=== PATIENT | male | born 1995 | race Caucasian/White ===

== ENCOUNTER 2020-09-22 22:46 | Emergency (ER) | payer BC, SELFPAY ==
[2020-09-22] VITALS (8 sets, daily range): BP systolic 133–165; BP diastolic 77–93; PULSE 87–98; RESP 17–30; TEMP 35.8; O2SAT 96–100
--- NOTE | ~2020-09-22 | XR_ITS ---
EXAMINATION: XR chest 2V DATE: 09/23/2020 00:09 INDICATION: Dyspnea. TECHNIQUE: Frontal and lateral views of the chest were obtained. COMPARISON: Chest 2 views 06/15/2018 FINDINGS: The chest demonstrates clear lungs without pneumonia, pleural effusion, or pneumothorax. Th e heart size is normal. IMPRESSION: 1. No acute cardiopulmonary disease. Reviewed, dictated and finalized at location A.
[2020-09-23] VITALS (13 sets, daily range): BP systolic 134–144; BP diastolic 68–84; PULSE 74–97; RESP 18–29; O2SAT 97–100
[2020-09-23 00:04] LABS: Basophils Percent Auto 0.3 % (0.2-1.2); Eosinophils Absolute Auto 0.1 K/mm3 (0-0.3); Eosinophils Percent Auto 0.9 % (0-4.4); Hematocrit 41.3 % (42.0-52.0); Hemoglobin 13.8 g/dL (14.0-18.0); Immature Granulocyte Absolute 0.03 K/mm3 (0.00-0.031); Immature Granulocyte Percent A 0.5 % (0-0.5); Lymphocytes Absolute Auto 0.84 K/mm3 (0.9-3.2); Lymphocytes Percent Auto 12.6 % (18.3-44.2); Mean Corpuscular HGB Conc 33.4 g/dl (32-36); Mean Corpuscular Hemoglobin 27.1 pg (26-34); Mean Platelet Volume 9.2 fl (7.4-10.4); Monocytes Absolute Auto 0.2 K/mm3 (0.1-0.6); Monocytes Percent Auto 2.4 % (2.6-8.5); Neutrophils Absolute Auto 5.5 K/mm3 (1.3-6.7); Neutrophils Percent Auto 83.3 % (45.5-73.1); Platelet Count Result 214 k/mm3 (150-375); Red Cell Distribution Width 12.9 % (11.5-14.5); White Blood Count 6.7 K/mm3 (4.5-10.0)
[2020-09-23] MEDS: IBUPROFEN 400 MG TABLET 800 MG PO (00:13)
[2020-09-23 00:17] LABS: Anion Gap 6 mmol/L (8-16); Blood Urea Nitrogen 12 mg/dL (9-20); Calcium 9.5 mg/dL (8.4-10.2); Carbon Dioxide 26 mmol/L (22-30); Chloride 108 mmol/L (98-107); Estimated CRCL calculation 134 ml/min; Estimated Glomerular Filt Rate > 60; Glucose 109 mg/dL (75-110); Potassium 3.8 mmol/L (3.4-5.0); Sodium 140 mmol/L (137-145)
--- NOTE | 2020-09-23 00:38 | ED.GENADULT ---
HPI - General Adult General Chief complaint: Unspecified Stated complaint: cant stop shaking Time Seen by Provider: 09/22/20 23:16 History of Present Illness HPI narrative: Patient is a 25-year-old male who presents ER with reports of shaking. Reports he is watching TV when he started to feel like he was little short of breath. He got up and walk around and went to his room. On his room he started having an episode of shaking where his arms and legs were shaking he could not stop them. He maintained consciousness throughout this and was able to ambulate. It occurred 3 separate times for about 30 seconds each time. Patient denies any fevers or chills or sweats. No sinus congestion or sore throat or productive cough. He denies urinary or abdominal symptoms as well. No known sick contacts. Reports he has developed a slight left-sided frontal throbbing headache since this. Had no loss of bowel or bladder. He did not bite his tongue. Family concerned he may have had a seizure so they recommended he come to the ER. Related Data Home Medications Medication Instructions Recorded Confirmed No Home Medications 06/06/19 09/22/20 Allergies Allergy/AdvReac Type Severity Reaction Status Date / Time red dye Allergy Unknown Anaphylactic Verified 09/22/20 22:47 Shock Penicillins Allergy Unknown Verified 09/22/20 22:47 Review of Systems Review of Systems: All systems reviewed & are unremarkable except as noted in HPI and below Constitutional: Constitutional: Denies body ache(s), Denies chills and Denies excessive sweating Comments: Shaking ENT: Denies nasal congestion and Denies sore throat Respiratory: Respiratory: Denies cough, Reports dyspnea and Denies wheezing Gastrointestinal: Gastrointestinal: Denies abdominal pain, Denies diarrhea, Denies nausea and Denies vomiting Neurologic: Denies dizziness, Denies syncope, Reports headache(s), Denies focal weakness, Denies loss of vision, Denies memory loss, Denies numbness and Reports seizure-like activity [facility] Past Medical History Medical History (Updated 09/23/20 @ 00:53 by Jerome Garcia MD) Family history of cystic fibrosis Surgical History Surgical History (Updated 09/23/20 @ 00:41 by Jerome Garcia MD) No pertinent past surgical history Family History Family History (Updated 06/24/18 @ 14:07 by DOCTOR UNKNOWN) Grandparent Family history of thyroid disease Diabetes mellitus Family history of malignant neoplasm of thyroid Father Family history of anemia Social History Social History (Updated 09/23/20 @ 00:41 by Jerome Garcia MD) Smoking status: Never smoker Alcohol intake: current Substance use: never Gender identity (if verbalized by the patient): Male Exam Narrative: Exam Narrative: GENERAL: Well-appearing, well-nourished, and in no acute distress. HEAD: Normocephalic, atraumatic. NECK: Supple. Range of motion is painless. CHEST: Clear to auscultation. No respiratory distress. HEART: Regular rate and rhythm. Normal peripheral pulses. EXTREMITIES: Normal range of motion. No edema. SKIN: Warm, dry, no rash. NEURO: Alert and oriented x3. Clear speech. PSYCH: Normal mood and affect. Course Course Emergency Course: Unremarkable evaluation. Ibuprofen given for headache which improved his symptoms. This is felt unlikely to be a seizure. May be prodrome to viral illness. Discussed signs and symptoms for return. Vital Signs Vital signs: Vital Signs Temperature 96.5 F L 09/22/20 22:48 Pulse Rate 94 09/22/20 22:48 Respiratory Rate 17 09/22/20 22:48 Blood Pressure 165/93 H 09/22/20 22:48 Pulse Oximetry 99 09/22/20 22:48 Temperature 96.5 F L 09/22/20 22:48 Pulse Rate 95 09/23/20 00:28 Respiratory Rate 17 09/22/20 22:48 Blood Pressure 135/84 09/23/20 00:28 Pulse Oximetry 99 09/22/20 22:48 Medical Decision Making Vital Signs Vital Signs: Vital Signs Temperature 96.5 F
== END 2020-09-23 00:59 | disposition home or self-care (01) ==
PROVIDERS: Emergency Provider Emergency Medicine; PCP Family Medicine
DX: R25.9 Unspecified abnormal involuntary movements (principal)
CPT/HCPCS: 36415; 71046; 80048; 85025; 99283; A9270

== ENCOUNTER → 2020-11-05 12:17 | Outpatient (CLI) | payer BC, SELFPAY ==
--- NOTE | ~2020-11-05 | CT_ITS ---
EXAMINATION: CT abdomen pelvis w con DATE: 11/05/2020 12:38 INDICATION: Left lower quadrant abdominal pain. TECHNIQUE: Computed tomography (CT) of the abdomen and pelvis was performed with 100 mL Omnipaque 350 intravenous contrast. Automated exposure control and iterative reconstruction technique were employe d. The dose-length product was 956.99 mGy-cm. COMPARISON: None. FINDINGS: The visualized portions of the lung bases demonstrate minimal atelectasis on the right. No pleural effusion. The heart size is normal. No pericardial effusion. The liver, gallbladder, spleen, pancreas, adrenal glands, and kidneys are normal. There are no dilated loops of bowel. The appendix i s normal. There are no pathologically enlarged lymph nodes. There is no free intraperitoneal fluid. T here is an umbilical hernia containing fat. There is mild lumbar spondylosis. IMPRESSION: 1. Umbilical hernia containing fat. Reviewed, dictated and finalized at location A.
== END ==
PROVIDERS: PCP Nurse Practitioner; Visit Provider Nurse Practitioner
DX: K42.9 Umbilical hernia without obstruction or gangrene (principal)
CPT/HCPCS: 74177; Q9967

== ENCOUNTER 2021-01-31 00:05 | Emergency (ER) | payer BC, SELFPAY ==
--- NOTE | ~2021-01-31 | CT_ITS ---
EXAMINATION: CT abdomen pelvis w con DATE: 01/31/2021 02:43 INDICATION: Right lower quadrant abdominal pain for 3 days. Nausea. TECHNIQUE: Computed tomography (CT) of the abdomen and pelvis was performed with 100 cc Omnipaque 350 intravenous contrast. Automated exposure control and iterative reconstruction technique were employe d. Exam dose: 890.60 mGy-cm total exam DLP. COMPARISON: 11/05/2020 CT abdomen pelvis FINDINGS: The lung bases are clear. Normal heart size. No pericardial or pleural effusion. The liver, gallbladder, bile ducts, spleen, pancreas, pancreatic, and adrenal glands and kidneys are unremarkable. Normal caliber of the abdominal aorta. No intraperitoneal or retroperitoneal or pelvic mass lesion or adenopathy or ascites. Normal appendix. No bowel obstruction, bowel wall thickening, pneumatosis or intraperitoneal free air is detected. Small fat-containing umbilical hernia. Included skeletal structures are unremarkable. IMPRESSION: Normal appendix Reviewed, dictated and finalized at Location A. Reviewed, dictated and finalized at location A. IMPRESSION: Normal appendix
[2021-01-31 00:09] VITALS: BP 152/75; PULSE 78; RESP 18; TEMP 36.6; O2SAT 99
[2021-01-31 00:20] LABS: Basophils Percent Auto 0.4 % (0.2-1.2); Eosinophils Absolute Auto 0.1 K/mm3 (0-0.3); Hematocrit 43.1 % (42.0-52.0); Hemoglobin 14.7 g/dL (14.0-18.0); Immature Granulocyte Absolute 0.02 K/mm3 (0.00-0.031); Immature Granulocyte Percent A 0.2 % (0-0.5); Lymphocytes Percent Auto 27.3 % (18.3-44.2); Mean Corpuscular HGB Conc 34.1 g/dl (32-36); Mean Corpuscular Hemoglobin 27.4 pg (26-34); Mean Corpuscular Volume 80.3 fl (80-100); Mean Platelet Volume 9.2 fl (7.4-10.4); Monocytes Absolute Auto 0.5 K/mm3 (0.1-0.6); Monocytes Percent Auto 5.9 % (2.6-8.5); Neutrophils Absolute Auto 5.5 K/mm3 (1.3-6.7); Neutrophils Percent Auto 65.2 % (45.5-73.1); Platelet Count Result 273 k/mm3 (150-375); Red Blood Count 5.37 M/mm3 (4.6-6.20); Red Cell Distribution Width 12.9 % (11.5-14.5); White Blood Count 8.4 K/mm3 (4.5-10.0)
[2021-01-31 00:29] LABS: Alanine Aminotransferase 40 U/L (4-50); Alkaline Phosphatase 81 U/L (38-126); Anion Gap 12 mmol/L (8-16); Aspartate Amino Transferase 29 U/L (17-59); Bilirubin,Total 0.6 mg/dL (0.2-1.3); Blood Urea Nitrogen 14 mg/dL (9-20); Calcium 9.8 mg/dL (8.4-10.2); Carbon Dioxide 27 mmol/L (22-30); Chloride 103 mmol/L (98-107); Estimated CRCL calculation 107 ml/min; Estimated Glomerular Filt Rate > 60; Glucose 95 mg/dL (65-110); Lipase 81 U/L (23-300); Potassium 3.8 mmol/L (3.4-5.0); Sodium 142 mmol/L (137-145)
[2021-01-31 01:01] LABS: Add Urine Microscopic? YES; Appearance Urine Clear (Clear); Bilirubin Urine Negative (Negative); Blood Urine Negative (Negative); Color Urine Yellow (Yellow); Glucose Urine UA Negative (Negative); Ketones Urine Negative (Negative); Leukocyte Esterase Ur Negative LEU/UL (Negative); Mucus Urine Rare /lpf; Nitrate Urine Negative (Negative); Protein Urine Negative (Negative); RBC Urine 0-2 /hpf (0-2); Specific Grav Ur 1.019 (1.001-1.035); Urobilinogen Urine Negative mg/dL (<2.0); WBC Urine 0-3 /hpf
--- NOTE | 2021-01-31 01:30 | ED.ABDPAIN ---
HPI - Abdominal Pain General Chief Complaint: Abdominal Pain Stated Complaint: right abdominal pain Time Seen by Provider: 01/31/21 01:20 Source: patient History of Present Illness HPI narrative: Patient presents with right lower quadrant abdominal pain. Patient ports symptoms present for the past 3 days getting progressively worse. Reports his pain is a dull ache, constant, worse with standing up, no radiation. Reports association with nausea but no vomiting reports some soft stools but denies diarrhea. Denies any prior abdominal surgeries. Denies fever or known sick contacts. Related Data Allergies Allergy/AdvReac Type Severity Reaction Status Date / Time red dye Allergy Unknown Anaphylactic Verified 10/31/20 15:55 Shock Penicillins Allergy Unknown Verified 10/31/20 15:55 Review of Systems Review of Systems: CONSTITUTIONAL: Denies fever, chills, or sweats. EYES: Denies visual changes, redness, or discharge. ENT: Denies rhinorrhea, congestion, sore throat, or otalgia. CARDIOVASCULAR: Denies chest pain, palpitations, or edema. RESPIRATORY: Denies cough or dyspnea. GASTROINTESTINAL: Reports abdominal pain and nausea GENITOURINARY: Denies dysuria or hematuria. SKIN: Denies rash or itching. MUSCULOSKELETAL: Denies back pain, joint pain, or myalgia. NEUROLOGIC: Denies headache, numbness, dizziness, or weakness. PSYCHIATRIC: Denies anxiety or depression. All systems reviewed & are unremarkable except as noted in HPI and below PMFSH Past Medical History Medical History Family history of cystic fibrosis Surgical History Surgical History No pertinent past surgical history Family History Family History Grandparent Family history of thyroid disease Diabetes mellitus Family history of malignant neoplasm of thyroid Father Family history of anemia Social History Social History Smoking status: Never smoker Alcohol intake: current Substance use: never Gender identity (if verbalized by the patient): Male Exam Narrative: GENERAL: Well-appearing, well-nourished, and in no acute distress. HEAD: Normocephalic, atraumatic. EYES: PERRLA and EOMI. ENT: Nares clear, no rhinorrhea or epistaxis. Mucous membranes moist. NECK: Supple. No masses. No JVD CHEST: Clear to auscultation. No respiratory distress. No wheezes rales or rhonchi HEART: Regular rate and rhythm. No murmur heard. Normal peripheral pulses. ABDOMEN: Moderate tenderness in the right lower quadrant no rebound or guarding soft, nondistended. EXTREMITIES: Normal range of motion. No edema. SKIN: Warm, dry, no rash. NEURO: No focal deficits. Alert and oriented x3. PSYCH: Normal mood and affect. Course Reevaluation(s) Reevaluation #1: Patient resting comfortably labs and plan reviewed with patient. Patient comfortable outpatient plan. Date: 01/31/21 Time: 04:12 Vital Signs Vital signs: Vital Signs Temperature 36.6 C 01/31/21 00:09 Pulse Rate 78 01/31/21 00:09 Respiratory Rate 18 01/31/21 00:09 Blood Pressure 152/75 H 01/31/21 00:09 Pulse Oximetry 99 01/31/21 00:09 Temperature 36.6 C 01/31/21 00:09 Pulse Rate 78 01/31/21 04:03 Respiratory Rate 18 01/31/21 04:03 Blood Pressure 178/83 H 01/31/21 04:03 Pulse Oximetry 100 01/31/21 04:03 MDM - Abdominal Pain MDM Narrative Medical decision making narrative: H&P as above, vss, pt looks clinically well, exam with tenderness in the right lower quadrant, labs clinically unremarkable, img without acute process, additional labs/img considered, symptomatic relief available as needed, on reevaluation pt continues to looks clinically well. Symptoms remain of unclear etiology may represent early viral process, dns appendicitis, bowel structure, perforation, cho
[2021-01-31 04:03] VITALS: BP 178/83; PULSE 78; RESP 18; O2SAT 100
== END 2021-01-31 04:51 | disposition home or self-care (01) ==
PROVIDERS: Emergency Provider Emergency Medicine; PCP Nurse Practitioner
DX: R10.31 Right lower quadrant pain (principal); R11.0 Nausea
CPT/HCPCS: 36415; 74177; 80053; 81001; 83690; 85025; 99284; Q9967

== ENCOUNTER 2021-04-19 17:34 | Emergency (ER) | payer BC, SELFPAY ==
--- NOTE | ~2021-04-19 | XR_ITS ---
EXAMINATION: XR chest 2V DATE: 04/19/2021 18:00 INDICATION: Left-sided chest pain radiating to the left arm with tingling. Shortness of breath. TECHNIQUE: PA and lateral views of the chest were obtained. COMPARISON: Chest radiograph dated 09/23/2020 FINDINGS: The lungs remain clear with no focal airspace opacities, pulmonary edema, pleural effusion or pneumot horax. The cardiomediastinal silhouette is normal. Visualized bones and soft tissues are unremarkable . IMPRESSION: 1. Normal chest radiograph. Reviewed, dictated and finalized at location H. GE PLANT ATTENDANT IMPRESSION: 1. Normal chest radiograph.
[2021-04-19 17:36] VITALS: BP 158/106; PULSE 66; RESP 18; TEMP 36.2; O2SAT 100
--- NOTE | 2021-04-19 17:38 | ECG_ITS ---
Measurements Intervals [place] Rate: 62 P: 39 DE: 178 QRS: 59 QRSD: 91 T: 29 QT: 376 QTc: 384 Interpretive Statements SINUS RHYTHM WITH SINUS ARRHYTHMIA BASELINE ARTIFACT- I, II, III, AVR, AVL, AVF, V2 NORMAL ECG Electronically Signed On 04-19-2021 20:09:51 [employer]OREROOM KEEPER by Keny Mas D.O.
[2021-04-19 18:29] LABS: Basophils Percent Auto 0.6 % (0.2-1.2); Eosinophils Absolute Auto 0.2 K/mm3 (0-0.3); Eosinophils Percent Auto 2.7 % (0-4.4); Hematocrit 44.4 % (42.0-52.0); Hemoglobin 15.1 g/dL (14.0-18.0); Immature Granulocyte Absolute 0.02 K/mm3 (0.00-0.031); Immature Granulocyte Percent A 0.3 % (0-0.5); Lymphocytes Absolute Auto 1.99 K/mm3 (0.9-3.2); Lymphocytes Percent Auto 29.4 % (18.3-44.2); Mean Corpuscular Hemoglobin 27.4 pg (26-34); Mean Corpuscular Volume 80.4 fl (80-100); Mean Platelet Volume 9.1 fl (7.4-10.4); Monocytes Absolute Auto 0.5 K/mm3 (0.1-0.6); Monocytes Percent Auto 6.7 % (2.6-8.5); Neutrophils Absolute Auto 4.1 K/mm3 (1.3-6.7); Neutrophils Percent Auto 60.3 % (45.5-73.1); Platelet Count Result 265 k/mm3 (150-375); Red Blood Count 5.52 M/mm3 (4.6-6.20); Red Cell Distribution Width 12.7 % (11.5-14.5); White Blood Count 6.8 K/mm3 (4.5-10.0)
[2021-04-19 18:43] LABS: Partial Thromboplastin Time 26.4 SECONDS (22.3-36.8)
[2021-04-19 18:44] LABS: Alanine Aminotransferase 42 U/L (4-50); Albumin Level 4.7 g/dL (3.5-5.1); Alkaline Phosphatase 70 U/L (38-126); Anion Gap 7 mmol/L (8-16); Aspartate Amino Transferase 31 U/L (17-59); Bilirubin,Total 0.6 mg/dL (0.2-1.3); Blood Urea Nitrogen 15 mg/dL (9-20); Calcium 9.8 mg/dL (8.4-10.2); Carbon Dioxide 28 mmol/L (22-30); Chloride 101 mmol/L (98-107); Estimated CRCL calculation 107 ml/min; Estimated Glomerular Filt Rate > 60; Glucose 96 mg/dL (65-110); Lipase 72 U/L (23-300); Potassium 3.9 mmol/L (3.4-5.0); Sodium 136 mmol/L (137-145)
[2021-04-19 18:56] LABS: Troponin I < 0.012 ng/mL (0.000-0.034)
[2021-04-19 21:48] VITALS: BP 162/91; PULSE 60; RESP 17; O2SAT 99
[2021-04-19 22:10] LABS: Troponin I < 0.012 ng/mL (0.000-0.034)
--- NOTE | 2021-04-19 23:10 | ED.CHESTPAIN ---
HPI - Chest Pain General Chief Complaint: Chest Pain Stated Complaint: chest pains Time Seen by Provider: 04/19/21 21:15 History of Present Illness HPI narrative: Patient is a 25-year-old male who presents ER with left-sided chest pain. Sudden onset around 4:00 in the afternoon. Aching in the left chest going to the left shoulder. Had some tingling in his left arm. Lasted for about 40 minutes. Reports he was lightheaded and sweaty. This is happened to him multiple times for last few months. No fevers or chills. No aggravating factors. He had been napping. No reflux symptoms. No nausea/vomiting. No history of heart disease. No family history of coronary disease at young age. Cannot report any alleviating factors. Reports he did have some tingling in his fingers bilaterally. Denies anxiety. Related Data Allergies Allergy/AdvReac Type Severity Reaction Status Date / Time red dye Allergy Severe Hives Verified 04/19/21 21:51 Penicillins Allergy Intermediate Rash Verified 04/19/21 21:51 Review of Systems Review of Systems: All systems reviewed & are unremarkable except as noted in HPI and below Constitutional: Constitutional: Denies chills and Denies fever(s) Comments: Sweats ENT: Denies nasal congestion and Denies sore throat Cardiovascular: Cardiovascular: Reports chest pain, Denies rapid heart rate and Reports radiating jaw, neck or arm pain Respiratory: Respiratory: Denies cough and Denies dyspnea Gastrointestinal: Gastrointestinal: Denies abdominal pain, Denies nausea and Denies vomiting Neurologic: Reports dizziness, Denies focal weakness and Denies numbness Comments: Hand tingling PMFSH Past Medical History Medical History Family history of cystic fibrosis Surgical History Surgical History No pertinent past surgical history Family History Family History Grandparent Family history of thyroid disease Diabetes mellitus Family history of malignant neoplasm of thyroid Father Family history of anemia Social History Social History Smoking status: Never smoker Alcohol intake: current Substance use: never Gender identity (if verbalized by the patient): Male Exam Narrative: GENERAL: Well-appearing, well-nourished, and in no acute distress. HEAD: Normocephalic, atraumatic. EYES: PERRL and EOMI. CHEST: Clear to auscultation. No respiratory distress. HEART: Regular rate and rhythm. Normal peripheral pulses. ABDOMEN: Soft, nontender, nondistended. EXTREMITIES: Normal range of motion. No edema. SKIN: Warm, dry, no rash. NEURO: Alert and oriented x3. PSYCH: Normal mood and affect. Course Course Emergency Course: No chest pain here. 2 set troponin negative. Unremarkable EKG and x-ray. Patient given reassurance. Recommend follow-up with PCP. Though no palpitations discussed that arrhythmia could cause symptoms of lightheadedness and tingling as well as chest discomfort. May require outpatient Holter monitor. Vital Signs Vital signs: Vital Signs Temperature 97.2 F L 04/19/21 17:36 Pulse Rate 66 04/19/21 17:36 Respiratory Rate 18 04/19/21 17:36 Blood Pressure 158/106 H 04/19/21 17:36 Pulse Oximetry 100 04/19/21 17:36 Temperature 97.2 F L 04/19/21 17:36 Pulse Rate 60 04/19/21 21:48 Respiratory Rate 17 04/19/21 21:48 Blood Pressure 162/91 H 04/19/21 21:48 Pulse Oximetry 99 04/19/21 21:48 MDM - Chest Pain Lab Data Result diagrams: 04/19/21 18:23 04/19/21 18:23 Labs: Lab Results 04/19/21 04/19/21 04/19/21 Range/Units 18:23 18:23 18:23 WBC 6.8 (4.5-10.0) K/mm3 RBC 5.52 (4.6-6.20) M/mm3 Hgb 15.1 (14.0-18.0) g/dL Hct 44.4 (42.0-52.0) % MCV 80.4 (80-100) fl MCH 27.4
[2021-04-19 23:23] VITALS: BP 143/83; PULSE 53; RESP 16; O2SAT 100
== END 2021-04-19 23:24 | disposition home or self-care (01) ==
PROVIDERS: Emergency Medicine; Emergency Provider Emergency Medicine; PCP Nurse Practitioner
DX: R07.9 Chest pain, unspecified (principal)
CPT/HCPCS: 36415; 71046; 80053; 83690; 84484; 85025; 85610; 85730; 93005; 99284

== ENCOUNTER 2021-07-02 09:23 | Outpatient (CLI) | payer BC, SELFPAY ==
--- NOTE | 2021-07-02 09:33 | EST_ITS ---
Patient Info Name: Jarek Pizarro Age: 25 years : 1995 Gender: Male Ht: 75 in Wt: 23 lbs BSA: 0.69 m2 HR: 58 bpm BP: 130 / 52 mmHg Heart Rhythm: Sinus Rhythm Exam Date: 07/02/2021 10:18 AM Exam Location: [facility] Stress Patient Status: Outpatient Admit Date: 07/02/2021 Staff Ordering Physician: Juanita Smith NP Attending Provider: Juanita Smith NP Exercise Technologist: Alie Kerns CT Exercise Physician: Keny Mas DO Exam Type: CA stress test treadmill Study Info Indications R07.9 - Chest pain, unspecified A treadmill exercise stress test was performed. Summary 1. 1. Negative Jeremi exercise stress test for ischemic ST changes by ECG criteria. 2. 2. Good functional capacity, achieving 14.9 METs of workload. 3. 3. Hypertensive response to exercise. 4. 4. Appropriate HR response to exercise. 5. 5. Appropriate HR recovery at 1 minute post exercise. 6. 6. No imaging with stress testing. 7. 7. Patient informed of the above results. Protocol: Jeremi Stress ECG Details Stage: REST Duration (min): 1 min : 4 sec Speed (mph): 0.0 Grade (%): 0 HR (bpm): 57 SBP (mmHg): 130 DBP (mmHg): 82 METS: --- Stage: REST Duration (min): 8 min : 34 sec Speed (mph): 0.0 Grade (%): 0 HR (bpm): 65 SBP (mmHg): 130 DBP (mmHg): 82 METS: --- Stage: STAGE 1 Duration (min): 1 min : 0 sec Speed (mph): 1.7 Grade (%): 10 HR (bpm): 86 SBP (mmHg): 130 DBP (mmHg): 82 METS: --- Stage: STAGE 1 Duration (min): 2 min : 0 sec Speed (mph): 1.7 Grade (%): 10 HR (bpm): 89 SBP (mmHg): 130 DBP (mmHg): 82 METS: --- Stage: STAGE 1 Duration (min): 3 min : 0 sec Speed (mph): 1.7 Grade (%): 10 HR (bpm): 90 SBP (mmHg): 142 DBP (mmHg): 66 METS: --- Stage: STAGE 2 Duration (min): 1 min : 0 sec Speed (mph): 2.5 Grade (%): 12 HR (bpm): 100 SBP (mmHg): 142 DBP (mmHg): 66 METS: --- Stage: STAGE 2 Duration (min): 2 min : 0 sec Speed (mph): 2.5 Grade (%): 12 HR (bpm): 104 SBP (mmHg): 165 DBP (mmHg): 67 METS: --- Stage: STAGE 2 Duration (min): 3 min : 0 sec Speed (mph): 2.5 Grade (%): 12 HR (bpm): 102 SBP (mmHg): 165 DBP (mmHg): 67 METS: --- Stage: STAGE 3 Duration (min): 1 min : 0 sec Speed (mph): 3.4 Grade (%): 14 HR (bpm): 114 SBP (mmHg): 183 DBP (mmHg): 50 METS: --- Stage: STAGE 3 Duration (min): 2 min : 0 sec Speed (mph): 3.4 Grade (%): 14 HR (bpm): 122 SBP (mmHg): 183 DBP (mmHg): 50 METS: --- Stage: STAGE 3 Duration (min): 3 min : 0 sec Speed (mph): 3.4 Grade (%): 14 HR (bpm): 128 SBP (mmHg): 176 DBP (mmHg): 51 METS: --- Stage: STAGE 4 Duration (min): 1 min : 0 sec Speed (mph): 4.2 Grade (%): 16 HR (bpm): 144 SBP (mmHg): 176 DBP (mmHg): 51 METS:
== END 2021-07-02 09:24 | disposition home or self-care (01) ==
LOC: ANHCARD 09:25
PROVIDERS: PCP Nurse Practitioner; Visit Provider Nurse Practitioner
DX: R07.89 Other chest pain (principal); R00.2 Palpitations
CPT/HCPCS: 93017

== ENCOUNTER 2022-04-24 06:50 | Emergency (ER) | payer BC, SELFPAY ==
--- NOTE | ~2022-04-24 | CT_ITS ---
EXAMINATION: CT abdomen pelvis w con INDICATION: Right lower quadrant pain TECHNIQUE: Computed tomographic images of the abdomen and pelvis were obtained after the administrati on of 100 cc of Omnipaque 350 intravenous contrast. The dose-length product (DLP) was 856.91 mGy-cm. Automated exposure control and iterative reconstruction technique were employed. COMPARISON: 01/31/2021 FINDINGS: The lung bases are clear. The heart size is normal. There is a small sliding hiatal hernia. The liver, spleen, pancreas, gallbladder, and adrenal glands are normal. The kidneys are unremarkabl e. No pathologically enlarged abdominal or pelvic lymph nodes are identified. There is no free intrap eritoneal gas or evidence of bowel obstruction. The appendix is normal. There is of apparent colonic wall thickening are likely related to incomplete distention rather than inflammation. Bone islands ar e noted in the pelvis. There is a small umbilical hernia containing fat. Mild lumbar spondylosis is n oted. IMPRESSION: 1. No CT correlate for the patient's symptoms. Reviewed, dictated and finalized at location D. L FILE CLERK
--- NOTE | ~2022-04-24 | US_ITS ---
Limited Abdominal Sonogram: Real-time sonographic imaging of the right upper quadrant was performed. Clinical History: Right upper quadrant pain Findings: The liver appears normal with no evidence of mass lesion or bile duct dilatation. Main por shraddha vein demonstrates normal direction of flow. The gallbladder is well distended, and appears normal with no evidence of gallstone or wall thickening. The common bile duct measures 4 mm. The visualize d pancreas, aorta, and IVC are unremarkable. Impression: No significant abnormality seen. Reviewed, dictated and finalized at location M. NICAL SERVICE REPRESENTATIVE Impression: No significant abnormality seen.
[2022-04-24 06:54] VITALS: BP 132/85; PULSE 63; RESP 16; TEMP 36.8; O2SAT 99
[2022-04-24 07:12] LABS: Basophils Percent Auto 0.5 % (0.2-1.2); Eosinophils Absolute Auto 0.2 K/mm3 (0-0.3); Eosinophils Percent Auto 3.5 % (0-4.4); Hematocrit 48.3 % (42.0-52.0); Hemoglobin 15.9 g/dL (14.0-18.0); Immature Granulocyte Absolute 0.01 K/mm3 (0.00-0.031); Immature Granulocyte Percent A 0.2 % (0-0.5); Lymphocytes Absolute Auto 1.33 K/mm3 (0.9-3.2); Lymphocytes Percent Auto 24.3 % (18.3-44.2); Mean Corpuscular HGB Conc 32.9 g/dl (32-36); Mean Platelet Volume 9.1 fl (7.4-10.4); Monocytes Absolute Auto 0.4 K/mm3 (0.1-0.6); Monocytes Percent Auto 7.3 % (2.6-8.5); Neutrophils Absolute Auto 3.5 K/mm3 (1.3-6.7); Neutrophils Percent Auto 64.2 % (45.5-73.1); Platelet Count Result 236 k/mm3 (150-375); Red Blood Count 5.89 M/mm3 (4.6-6.20); White Blood Count 5.5 K/mm3 (4.5-10.0)
--- NOTE | 2022-04-24 07:19 | ED.GENADULT ---
HPI - General Adult General Chief complaint: Abdominal Pain Stated complaint: RUQ pain Time Seen by Provider: 04/24/22 07:05 History of Present Illness HPI narrative: This is a 26-year-old male presenting ED with chief complaint of right upper quadrant abdominal pain. The patient says that the pain started on Thursday afternoon after lunch. First was a dull pain then transition to a sharp pain. Is nonradiating, 8 out 10 intensity and is always there but has spikes of pain occasionally. He has never experienced pain like this before there are no exacerbating or alleviating factors. He has had multiple episodes of nausea and vomiting today, he had 1 episode of diarrhea yesterday. He denies fever, chills, chest pain, difficulty breathing, urinary symptoms or testicular pain. He has taken Tylenol with some relief. Related Data Allergies Allergy/AdvReac Type Severity Reaction Status Date / Time red dye Allergy Severe Hives Verified 04/24/22 08:00 Review of Systems Review of Systems: CONSTITUTIONAL: Denies night sweats. EYES: No eye pain ENT: Denies rhinorrhea CARDIOVASCULAR: Denies palpitations RESPIRATORY: Denies hemoptysis GASTROINTESTINAL: Denies hematemesis GENITOURINARY: Denies hematuria. SKIN: Denies rash MUSCULOSKELETAL: Denies myalgia. NEUROLOGIC: Denies weakness. PSYCHIATRIC: Denies delusions PMFSH Past Medical History Medical History Family history of cystic fibrosis Surgical History Surgical History No pertinent past surgical history Family History Family History Grandparent Family history of thyroid disease Diabetes mellitus Family history of malignant neoplasm of thyroid Father Family history of anemia Social History Social History Smoking status: Never smoker Alcohol intake: current Substance use: never Gender identity (if verbalized by the patient): Male Exam Narrative: APPEARANCE: No apparent distress. Head: atraumatic. EYES: EOMI, NOSE: Atraumatic NECK: Trachea midline RESPIRATORY: No increased rate of breathing CARDIOVASCULAR: RRR, ABDOMINAL: Patient has mild tenderness in the right upper quadrant with no guarding or rebound. No abdominal distension. MUSCULOSKELETAl: No obvious deformities NEURO: Alert. Moving 4/4 extremities SKIN:: Warm, dry. Normal color PSYCHIATRIC: Normal affect point of care right upper quadrant ultrasound showed a distended gallbladder with no pericholecystic fluid or gallbladder wall thickening. no stones are visualized. No hydronephrosis of the right kidney. Course Vital Signs Vital signs: Vital Signs Temperature 98.2 F 04/24/22 06:54 Pulse Rate 63 04/24/22 06:54 Respiratory Rate 16 04/24/22 06:54 Blood Pressure 132/85 04/24/22 06:54 Pulse Oximetry 99 04/24/22 06:54 Oxygen Delivery Room Air 04/24/22 06:54 Temperature 98.2 F 04/24/22 06:54 Pulse Rate 63 04/24/22 06:54 Respiratory Rate 16 04/24/22 06:54 Blood Pressure 132/85 04/24/22 06:54 Pulse Oximetry 99 04/24/22 06:54 Oxygen Delivery Room Air 04/24/22 06:54 Medical Decision Making [facility] Narrative Medical decision making narrative: This is a 26-year-old male presenting to ED with a chief complaint of right upper quadrant pain. Differential includes gallbladder pathology, gastritis, viral syndrome, kidney stones. Lab work, CT abdomen pelvis with contrast have been ordered. Symptomatic treatment has been given. CT abdomen pelvis had no acute findings. A right upper quadrant ultrasound was ordered to evaluate for gallstones. No acute findings on ultrasound. Patient's laboratory studies were all within normal limits. Upon re-evaluation the patient's symptoms have improved. While we did rule out any emerge
[2022-04-24 07:23] LABS: Alanine Aminotransferase 39 U/L (6-50); Albumin Level 4.5 g/dL (3.5-5.1); Alkaline Phosphatase 72 U/L (38-126); Anion Gap 5 mmol/L (8-16); Aspartate Amino Transferase 30 U/L (17-59); Bilirubin,Total 0.5 mg/dL (0.2-1.3); Blood Urea Nitrogen 10 mg/dL (9-20); Calcium 9.2 mg/dL (8.4-10.2); Carbon Dioxide 31 mmol/L (22-30); Chloride 101 mmol/L (98-107); Estimated CRCL calculation 106 ml/min; Estimated Glomerular Filt Rate > 60; Glucose 99 mg/dL (65-110); Lipase 79 U/L (23-300); Potassium 4.2 mmol/L (3.4-5.0); Sodium 137 mmol/L (137-145)
[2022-04-24] MEDS: SODIUM CHLORIDE 0.9% IV 1,000 ML 999 ML IV CONT (07:33)
[2022-04-24] MEDS: ONDANSETRON INJ 4 MG/2 ML VIAL IV PUSH (07:33)
[2022-04-24] MEDS: IBUPROFEN 400 MG TABLET 800 MG PO (07:34)
[2022-04-24] MEDS: HYDROcodone/acetaminophen (*CRX) 5-325 MG TABLET 1 TAB PO (07:34)
[2022-04-24 07:42] LABS: Add Urine Microscopic? NO; Appearance Urine Clear (Clear); Bilirubin Urine Negative (Negative); Blood Urine Negative (Negative); Color Urine Light Yellow (Yellow); Glucose Urine UA Negative (Negative); Ketones Urine Negative (Negative); Leukocyte Esterase Ur Negative LEU/UL (Negative); Nitrate Urine Negative (Negative); Protein Urine Negative (Negative); Specific Grav Ur 1.015 (1.001-1.035); Urobilinogen Urine 0.2 mg/dL (<2.0); pH Urine 6.5 (5.0-9.0)
[2022-04-24 09:47] VITALS: BP 120/64; PULSE 48; RESP 18; O2SAT 97
== END 2022-04-24 10:14 | disposition home or self-care (01) ==
PROVIDERS: Emergency Medicine; Emergency Provider Emergency Medicine; PCP Nurse Practitioner
DX: R10.11 Right upper quadrant pain (principal); R11.2 Nausea with vomiting, unspecified
CPT/HCPCS: 36415; 74177; 76705; 80053; 81003; 83690; 85025; 96361; 96374; 99284; A9270; J2405; J7030; Q9967